=== PATIENT | male | born 1975 | race Caucasian/White ===

== ENCOUNTER 2024-03-04 12:09 | Emergency (ER) | payer SELFPAY ==
[~2024-03-04] VITALS: Ht 195.6 cm; Wt 115.0 kg
[~2024-03-04 12:09] MED LIST: KEFLEX500 MG PO; LORTAB5 PO; NO; ULTRAM50 MG PO
[2024-03-04] MEDS ORDERED: ATORVASTATIN CA20 MG PO (12:23)
[2024-03-04] MEDS ORDERED: VAZALORE81 MG PO (12:24)
[2024-03-04] MEDS ORDERED: METOPROL TAR25 MG PO (12:25)
[2024-03-04] MEDS ORDERED: NOVOLIN R100 UNIT/2 SC (12:27)
[2024-03-04 12:30] VITALS: BP 140/88
[2024-03-04 12:45] VITALS: BP 114/72
[2024-03-04] MEDS ORDERED: LORTAB 1010 MG PO (12:49)
[2024-03-04] MEDS ORDERED: PENICILLN VK500 MG PO (12:49)
[2024-03-04] MEDS ORDERED: NAPROXEN500 MG PO (12:49)
[2024-03-04 13:01] VITALS: BP 114/72
== END 2024-03-04 13:01 | disposition home or self-care (01) | DRG 159 ==
LOC: ED 12:09
DX: K04.7 Periapical abscess without sinus (principal); I10 Essential (primary) hypertension; F17.200 Nicotine dependence, unspecified, uncomplicated; Z95.1 Presence of aortocoronary bypass graft